=== PATIENT | female | born 1945 | race Caucasian/White ===

== ENCOUNTER 2020-05-31 13:44 | Emergency (ER) | payer MEDICARE, OTHER, SELFPAY ==
[2020-05-31] VITALS (10 sets, daily range): BP systolic 145–167; BP diastolic 76–88; PULSE 65–103; RESP 14–21; TEMP 36.8; O2SAT 96–98; BMI 22.4
--- NOTE | 2020-05-31 14:04 | ED_ITS ---
HPI - Female Genitourinary General Chief complaint: Urogenital-Female Stated complaint: abd/fatigue/uti pain x 4days Time Seen by Provider: 05/31/20 13:48 Source: patient and family Mode of arrival: Ambulatory Limitations: no limitations History of Present Illness HPI Narrative: Patient is a 74-year-old female with history of dementia presenting with her son with variety of complaints. She has a history of UTIs s he was recently treated for about 3-5 days for UTI, son is not entirely sure what she was on or when she stops it feels like it was a couple of weeks ago. He said the last day or so she has been complaining of some pain in her rectum. He has not noted significant decrease in her mental status. No fever nausea or vomiting. Patient currently complaining of being uncomfortable in the gurney and needing a pillow adjustment. She has no complaints of pain. Son states that she typically does not complain much of pain. Related Data Previous Rx's Medication Instructions Recorded cephalexin [Keflex] 500 mg PO TID #21 cap 05/31/20 hydrocortisone acetate [Anusol-HC] 25 mg ME BID PRN #12 ea 05/31/20 Allergies Allergy/AdvReac Type Severity Reaction Status Date / Time No Known Drug Allergies Allergy Verified 05/31/20 13:53 Review of Systems Review of Systems Narrative: Dementia ROS Unobtainable: Unobtainable due to mental condition Patient History marital status: Exam Initial Vital Signs Initial Vital Signs: Vital Signs Pulse Rate 103 H 05/31/20 13:51 Pulse Oximetry 96 05/31/20 13:51 GENERAL: Pleasant alert 74-year-old and in no acute distress. HEENT: Head atraumatic,EOMI, pupils reactive, face symmetric, moist mucous membranes CARDIOVASCULAR: Regular rate and rhythm without murmurs, rubs or gallops. RESPIRATORY: Breath sounds equal bilaterally, no wheezes rales or rhonchi. ABDOMEN: Soft, nontender. Normoactive bowel sounds all 4 quadrants. No guarding or rebound. RECTAL: External hemorrhoids noted, soft stool nonbloody EXTREMITIES: Normal range of motion, no clubbing or edema. Neurovascularly intact NEUROLOGICAL: Alert and oriented SKIN: Warm, dry, no laceration, no petechiae, no rashes or lesions. Procedures Rectal Disimpaction Time out performed rectal disimpaction: Yes Indication: fecal impaction Procedural Sedation: No Sedation/Analgesia: none Technique: manual disimpaction with gloved finger Result: significant stool output (some) Patient Tolerated Procedure: Well and No complications Complications: none Course Orders Ordered: ED Orders 05/31/20 14:05 Complete Blood Count AUTO DIFF Stat Comprehensive Metabolic Panel Stat Lactate (Lactic Acid) Stat Procalcitonin Stat 05/31/20 14:14 XR acute abdomen series Stat 05/31/20 14:43 Blood Culture Stat 05/31/20 14:55 Urinalysis and Microscopic Stat Urine Culture Stat Sodium Chloride (Normal Saline 0.9%) 1,000 mls @ 200 mls/hr IV CONT SOURAV Last Admin: 05/31/20 14:18 Dose: 200 mls/hr Documented by: APPLE Discontinued Medications Lidocaine HCl (Lidocaine 2% (Urojet) 5 Ml Gel) 5 ml TOP NOW ONE Stop: 05/31/20 18:11 Last Admin: 05/31/20 18:15 Dose: 5 ml Documented by: Mineral Oil (Mineral Oil 1 Each Enema) 1 each ME NOW ONE Stop: 05/31/20 16:05 Last Admin: 05/31/20 16:09 Dose: 1 each Documented by: APPLE Vital Signs Vital signs: Vital Signs - 8 hr 05/31/20 13:51 05/31/20 13:52 05/31/20 13:53 Temperature 98.2 F Pulse Rate 103 H 89 82 Respiratory Rate 14 Blood Pressure 145/78 H 145/78 H Pulse Oximetry 96 98 98 05/31/20 14:00 05/31/20 14:52 05/31/20 15:00 Temperature Pulse Rate 79 69 67 Respiratory Rate 21 Blood Pressure 154/77 H Pulse Oximetry 98 97 97 05/31/20 15:01 05/31/20 15:30 05/31/20 16:00 Temperature Pulse Rate 65 65 70 Respiratory Rate Blood Pressure 154/77 H 145/77 H 159/76 H Pulse Oximetry 97 98 MDM - Female Genitourinary Lab Data Attestation: I reviewed the patient's lab results. Result diagrams: 05/31/20 14:05 05/31/20 14:05 Labs: Lab Results 05/31/20 05/31/20 05/31/20 Range/Units 14:05 14:05 14:05 WBC 8.9 (4.5-11.0) X10^3/uL RBC 4.76 (4.0-5.2) X10^6/uL Hgb 14.3 (12.0-16.0) g/dL Hct 42.6 (36-46) % MCV 89.5 (80-100) fL MCH 30.0 (26-34) PG MCHC 33.5 (30-36) % RDW 14.1 (11.6-14.8) % Plt Count 245 (150-400) X10^3/uL Neut % (Auto) 65.2 (50-75) % Lymph % (Auto) 20.6 L (25-40) % [place] % (Auto) 8.8 (3-14) % Eos % (Auto) 4.6 H (2-4) % Baso % (Auto) 0.8 (0-2) % Neut # (Auto) 5800 (0987-3267) /uL Lymph # (Auto) 1800 (6989-0475) /uL [place] # (Auto) 800 (0-900) /uL Eos # (Auto) 400 (0-450) /uL Baso # (Auto) 100 (0-100) /uL Sodium 141 (137-145) mmol/L Potassium 3.6 (3.4-5.1) mmol/L Chloride 105 (98-107) mmol/L Carbon Dioxide 30 (22-32) mmol/L BUN 17 (7-17) mg/dL Creatinine 0.66 (0.52-1.04) mg/dL Estimated GFR > 60.0 (>60) mL/min BUN/Creatinine Ratio 25.8 H (6-22) Glucose 96 (80-110) mg/dL Lactate (0.7-2.1) mmol/L Calcium 9.5 (8.4-10.2) mg/dL Total Bilirubin 2.2 H (0.2-1.3) mg/dL AST 28 (14-36) IU/L ALT 14 (<35) IU/L Alkaline Phosphatase 96 (38-126) U/L Total Protein 7.5 (6.3-8.2) g/dL Albumin 4.3 (3.5-5.0) g/dL Globulin 3.2 (1.7-4.1) g/dL Albumin/Globulin Ratio 1.3 (1.0-2.8) Procalcitonin < 0.05 (<0.5) ng/mL Urine Color Urine Appearance Urine pH (4.5-8.0) Ur Specific [place] (1.000-1.035) Urine Protein (Negative) Urine Glucose (UA) (Negative) g/dL Urine Ketones (NEGATIVE) Urine Occult Blood (Negative) Urine Nitrate (Negative) Urine Bilirubin (NEGATIVE) Urine Urobilinogen (0.2) E.U./dL Ur Leukocyte Esterase (NEGATIVE) Urine RBC (0-5/HPF) Urine WBC (0-5/HPF) Ur Squamous Epith Cells (0-5/HPF) Calcium Oxalate Crystal Amorphous Sediment Urine Bacteria (None) Urine Mucus (Negative) Ur Culture Indicated? 05/31/20 05/31/20 Range/Units 14:05 14:55 WBC (4.5-11.0) X10^3/uL RBC (4.0-5.2) X10^6/uL Hgb (12.0-16.0) g/dL Hct (36-46) % MCV (80-100) fL MCH (26-34) PG MCHC (30-36) % RDW (11.6-14.8) % Plt Count (150-400) X10^3/uL Neut % (Auto) (50-75) % Lymph % (Auto) (25-40) % [place] % (Auto) (3-14) % Eos % (Auto) (2-4) % Baso % (Auto) (0-2) % Neut # (Auto) (8311-2960) /uL Lymph # (Auto) (2856-4948) /uL [place] # (Auto) (0-900) /uL Eos # (Auto) (0-450) /uL Baso # (Auto) (0-100) /uL Sodium (137-145) mmol/L Potassium (3.4-5.1) mmol/L Chloride (98-107) mmol/L Carbon Dioxide (22-32) mmol/L BUN (7-17) mg/dL Creatinine (0.52-1.04) mg/dL Estimated GFR (>60) mL/min BUN/Creatinine Ratio (6-22) Glucose (80-110) mg/dL Lactate 1.4 (0.7-2.1) mmol/L Calcium (8.4-10.2) mg/dL Total Bilirubin (0.2-1.3) mg/dL AST (14-36) IU/L ALT (<35) IU/L Alkaline Phosphatase (38-126) U/L Total Protein (6.3-8.2) g/dL Albumin (3.5-5.0) g/dL Globulin (1.7-4.1) g/dL Albumin/Globulin Ratio (1.0-2.8) Procalcitonin (<0.5) ng/mL Urine Color Yellow Urine Appearance Clear Urine pH 6.0 (4.5-8.0) Ur Specific [place] 1.020 (1.000-1.035) Urine Protein Trace H (Negative) Urine Glucose (UA) Negative (Negative) g/dL Urine Ketones Negative (NEGATIVE) Urine Occult Blood 1+ H (Negative) Urine Nitrate Negative (Negative) Urine Bilirubin Negative (NEGATIVE) Urine Urobilinogen 0.2 (0.2) E.U./dL Ur Leukocyte Esterase Trace H (NEGATIVE) Urine RBC 1-5/hpf (0-5/HPF) Urine WBC 5-10/hpf H (0-5/HPF) Ur Squamous Epith Cells 1-5 /hpf (0-5/HPF) Calcium Oxalate Crystal Few H Amorphous Sediment 1+ Urine Bacteria Few (2-10) H (None) Urine Mucus 1+ H (Negative) Ur Culture Indicated? Specimen cultured Imaging Data Abdominal x-ray: Radiologist's Impression: PROCEDURE: XR ACUTE ABDOMEN SERIES INDICATIONS: rectal pain TECHNIQUE: One view chest and two views of the abdomen were acquired. COMPARISON: None. FINDINGS: Surgical changes and devices: None. Chest: Lungs are clear. Heart size is enlarged. No pleural effusions. No pneumoperitoneum. Abdomen: Air distended colon loops are noted in abdomen with suggestion of fecal impaction in the region of distal sigmoid colon and rectum. No significant small bowel wall distention is seen. No gross peritoneal free air. No suspicious calcifications. Visualized solid organ contours appear normal. Bones: No suspicious bony lesions. IMPRESSION: Finding is suggestive of fecal impaction in the lower sigmoid colon and rectum. Distal colonic obstruction at the level of rectum cannot be excluded, suggest clinical correlation. No gross free air. Dictated by: Alexei Gunter M.D. on 05/31/2020 at 14:54 MDM Narrative Medical decision making narrative: Patient has obvious stool impaction along with hemorrhoid. There was not any large or hard stool it was all relatively soft. However disimpaction was quite painful due to hemorrhoids. Not much was removed. She has a history of frequent UTI she does have some blood bacteria in her urine. Will treat her for UTI with Keflex. She does not appear septic. She is obviously suffering from dementia. Frequently gets up to the commode and forgets why she is there. Discharge Plan Departure Patient Disposition: Home Clinical Impression: External hemorrhoids Urinary tract infection Qualifiers: Urinary tract infection type: acute cystitis Hematuria presence: with hematuria Qualified Code(s): N30.01 - Acute cystitis with hematuria Constipation Qualifiers: Constipation type: unspecified constipation type Qualified Code(s): K59.00 - Constipation, unspecified Instructions: DI for Hemorrhoids, DI for Urinary Tract Infection (UTI), DI for Constipation Activity Restrictions/Additional Instructions: *You have been diagnosed with constipation, hemorrhoids, UTI *What to do: Bowel movements are painful because of hemorrhoids. Recommend increasing water intake and using hemorrhoid suppositories to help make bowel movements last painful. *Continue to take medications as directed Anusol suppository as needed Keflex 500 mg 3 times a day for 5 days *Follow up with your primary care provider in 2-3 days *Return to ER if you should have increasing rectal pain, fever, worsening confusion or any new, worsening or concerning symptoms Prescriptions: New hydrocortisone acetate [Anusol-HC] 25 mg suppository 25 mg ME BID PRN (Reason: hemorrhoids) Qty: 12 RF: 0 cephalexin [Keflex] 500 mg capsule 500 mg PO TID Qty: 21 RF: 0 Referrals: Junie Graff MD [Primary Care Provider] -
--- NOTE | 2020-05-31 14:14 | DI.RAD.S_ITS ---
PROCEDURE: XR ACUTE ABDOMEN SERIES INDICATIONS: rectal pain TECHNIQUE: One view chest and two views of the abdomen were acquired. COMPARISON: None. FINDINGS: Surgical changes and devices: None. Chest: Lungs are clear. Heart size is enlarged. No pleural effusions. No pneumoperitoneum. Abdomen: Air distended colon loops are noted in abdomen with suggestion of fecal impaction in the region of distal sigmoid colon and rectum. No significant small bowel wall distention is seen. No gross peritoneal free air. No suspicious calcifications. Visualized solid organ contours appear normal. Bones: No suspicious bony lesions. IMPRESSION: Finding is suggestive of fecal impaction in the lower sigmoid colon and rectum. Distal colonic obstruction at the level of rectum cannot be excluded, suggest clinical correlation. No gross free air. Dictated by: Alexei Gunter M.D. on 05/31/2020 at 14:54 Approved by: Alexei Gunter M.D. on 05/31/2020 at 15:07
[2020-05-31] MEDS: SODIUM CHLORIDE 0.9% 1,000 ML 200 ML IV (14:18)
[2020-05-31 14:21] LABS: Add Manual Diff / Slide Review NO; Basophils Absolute Auto 100 /uL (0-100); Basophils Percent Auto 0.8 % (0-2); Eosinophils Absolute Auto 400 /uL (0-450); Eosinophils Percent Auto 4.6 % (2-4); Hematocrit 42.6 % (36-46); Hemoglobin 14.3 g/dL (12.0-16.0); Lymphocytes Absolute Auto 1800 /uL (1100-4500); Lymphocytes Percent Auto 20.6 % (25-40); Mean Corpuscular HGB Conc 33.5 % (30-36); Mean Corpuscular Volume 89.5 fL (80-100); Monocytes Absolute Auto 800 /uL (0-900); Monocytes Percent Auto 8.8 % (3-14); Neutrophils Absolute Auto 5800 /uL (1500-7000); Neutrophils Percent Auto 65.2 % (50-75); Platelet Count 245 X10^3/uL (150-400); Red Blood Cell Count 4.76 X10^6/uL (4.0-5.2); Red Cell Distribution Width 14.1 % (11.6-14.8); White Blood Cell Count 8.9 X10^3/uL (4.5-11.0)
[2020-05-31 14:33] LABS: Alanine Aminotransferase 14 IU/L (<35); Albumin 4.3 g/dL (3.5-5.0); Albumin Globulin Ratio 1.3 (1.0-2.8); Alkaline Phosphatase 96 U/L (38-126); Aspartate Aminotransferase 28 IU/L (14-36); BUN Creatinine Ratio 25.8 (6-22); Bilirubin Total 2.2 mg/dL (0.2-1.3); Blood Urea Nitrogen 17 mg/dL (7-17); Calcium 9.5 mg/dL (8.4-10.2); Carbon Dioxide 30 mmol/L (22-32); Chloride 105 mmol/L (98-107); Estimated Glomerular Filt Rate > 60.0 mL/min (>60); Globulin 3.2 g/dL (1.7-4.1); Glucose 96 mg/dL (80-110); HEMOLYSIS < 15 (0-50); Lactate (Lactic Acid) 1.4 mmol/L (0.7-2.1); Potassium 3.6 mmol/L (3.4-5.1); Sodium 141 mmol/L (137-145); Total Protein 7.5 g/dL (6.3-8.2)
[2020-05-31 15:04] LABS: Appearance Urine UA CLEAR; Bilirubin Urine UA NEGATIVE (NEGATIVE); Color Urine UA YELLOW; Glucose Urine UA NEGATIVE (Negative); Ketones Urine UA NEGATIVE (NEGATIVE); Leukocyte Esterase Urine UA TRACE (NEGATIVE); Nitrite Urine UA NEGATIVE (Negative); Occult Blood Urine UA 1+ (Negative); Protein Urine UA TRACE (Negative); Urobilinogen Urine UA 0.2 E.U./dL (0.2)
[2020-05-31 15:04] LABS: Procalcitonin < 0.05 ng/mL (<0.5)
[2020-05-31 15:12] LABS: Amorphous Sediment Urine 1+; Bacteria Urine Few (2-10); Calcium Oxalate Crystals Urine Few; Culture Indicated Urine Specimen Cultured; Mucus Urine 1+ (Negative); RBC Urine 1-5/HPF (0-5/HPF); Squamous Epithelial Cell Urine 1-5 /HPF (0-5/HPF); WBC Urine 5-10/HPF (0-5/HPF)
[2020-05-31] MEDS: MINERAL OIL 1 EACH ENEMA PR (16:09)
[2020-05-31] MEDS: LIDOCAINE 2% (UROJET) 5 ML GEL TOP (18:15)
== END 2020-05-31 19:03 | disposition home or self-care (01) ==
PROVIDERS: Emergency Provider Emergency Medicine; PCP Family Medicine
DX: K64.9 Unspecified hemorrhoids (principal); N30.01 Acute cystitis with hematuria; K59.00 Constipation, unspecified
CPT/HCPCS: 36415; 74022; 80053; 81001; 83605; 84145; 85025; 87040; 87086; 96360; 96361; 99283; 99284

== ENCOUNTER 2020-06-07 18:58 | Emergency (ER) | payer MEDICARE, OTHER, SELFPAY ==
[2020-06-07 18:59] VITALS: PULSE 76; RESP 15; TEMP 36.7; O2SAT 97
[2020-06-07 19:05] VITALS: BP 161/76
[2020-06-07 19:58] VITALS: BMI 22.8
--- NOTE | 2020-06-07 20:39 | ED_ITS ---
HPI - Back Pain/Injury General Chief Complaint: Back Pain/Injury Stated Complaint: back pain/ kidney area Time Seen by Provider: 06/07/20 19:15 Source: patient and family Limitations: other History of Present Illness HPI Narrative: Patient here for bilateral flank pain. Seen here 7 days ago for abdominal pain/CTA/constipation. Did have bowel movement since then. Worsened pain in last 3 days. No fever. No nausea or vomiting. No fall or injury. No prior history of back problems. Family states has not been able to stand and walk. That is unusual for her. She is usually ambulatory. No fever. Related Data Previous Rx's Medication Instructions Recorded cephalexin [Keflex] 500 mg PO TID #21 cap 05/31/20 hydrocortisone acetate [Anusol-HC] 25 mg MA BID PRN #12 ea 05/31/20 Allergies Allergy/AdvReac Type Severity Reaction Status Date / Time No Known Drug Allergies Allergy Verified 05/31/20 13:53 Review of Systems Review of Systems Narrative: GENERAL: Denies chills, fatigue, malaise, fever, sweats. HEENT: Denies sinus pain, ear pain, sore throat, difficulty swallowing RESPIRATORY: Denies dyspnea, cough CARDIOVASCULAR: Denies chest pain, palpitations, edema, GASTROINTESTINAL: Denies nausea, vomiting, abdominal pain, diarrhea, constipation, melena. : Denies dysuria, frequency, hematuria MUSCULOSKELETAL: denies muscle or bony pain SKIN: Denies rash, skin lesions NEUROLOGIC: Denies weakness, headache, numbness, change in speech, confusion PSYCHIATRIC: No SI or HI or hallucinations ROS Unobtainable: All systems reviewed & are unremarkable except as noted in HPI and below Patient History Social History marital status: Smoking Status: Never smoker Smoking Status: Never smoker alcohol intake frequency: 0-2 drinks per day Substance Use Type: does not use Exam Narrative Exam Narrative: GENERAL: patient appears stated age. Well-nourished, well- developed patient, in no distress, not toxic not dyspneic HEAD: Normocephalic. EYES: Pupils equal round and reactive. No scleral icterus. No injection no discharge ENT: Mucous membranes moist. No drooling no tongue elevation no trismus no malocclusion NECK: Trachea midline. Non tender CARDIOVASCULAR: Regular rate and rhythm without murmurs, gallops, or rubs. RESPIRATORY: Clear to auscultation. Breath sounds equal bilaterally. No wheezes, rales, or rhonchi. GASTROINTESTINAL: Abdomen soft, non-tender, nondistended. No peritoneal signs EXTREMITIES: No gross deformities. BACK: Nontender without deformity or crepitance. No flank tenderness. No rash. NEURO: Patient awake alert oriented to self and place. Patient at baseline according to [id number]. Clear speech. SKIN: Warm and dry PSYCH: Not anxious, is cooperative Initial Vital Signs Initial Vital Signs: Vital Signs Temperature 98.1 F 06/07/20 18:59 Pulse Rate 76 06/07/20 18:59 Respiratory Rate 15 06/07/20 18:59 Pulse Oximetry 97 06/07/20 18:59 Course Course Course Narrative: No new complaints while here. Orders Ordered: ED Orders 06/07/20 20:38 CT abdomen pelvis w con Stat 06/07/20 20:50 Complete Blood Count AUTO DIFF Stat Comprehensive Metabolic Panel Stat Lipase Stat 06/07/20 21:24 Urinalysis and Microscopic Stat Discontinued Medications Sodium Chloride (Normal Saline 0.9%) 500 mls @ 1,000 mls/hr IV BOLUS ONE Stop: 06/07/20 21:07 Last Infusion: 06/07/20 22:05 Dose: 0 mls/hr Documented by: Admin: 06/07/20 21:09 Dose: 1,000 mls/hr Documented by: EDER Reevaluation(s) Reevaluation #1: Reviewed results with patient and family. [id number] at bedside. At this time back pain not likely due to GI. Not related to constipation. Could be degenerative disc disease. There is no fracture seen on CT scan. Time: 22:49 Reevaluation #2: Patient up and walking bearing weight. Slightly shuffled gait. spd tech and daughter off at patient's side, not requiring assist Vital Signs Vital signs: Vital Signs - 8 hr 06/07/20 18:59 06/07/20 19:05 06/07/20 23:12 Temperature 98.1 F Pulse Rate 76 78 Respiratory Rate 15 22 Blood Pressure 162/89 H Blood Pressure [Left Arm] 161/76 H Pulse Oximetry 97 94 MDM - Back Pain/Injury Differential Diagnosis Differential diagnosis: Likely lumbar radiculopathy, strain of lumbar region, pyelonephritis, AAA, discitis and other (Degenerative disc disease) Medical Records Attestation: I reviewed the patient's medical records. Lab Data Attestation: I reviewed the patient's lab results. Result diagrams: 06/07/20 20:50 06/07/20 20:50 Labs: Lab Results 06/07/20 06/07/20 06/07/20 Range/Units 20:50 20:50 21:24 WBC 7.2 (4.5-11.0) X10^3/uL RBC 4.28 (4.0-5.2) X10^6/uL Hgb 12.5 (12.0-16.0) g/dL Hct 38.0 (36-46) % MCV 88.9 (80-100) fL MCH 29.3 (26-34) PG MCHC 33.0 (30-36) % RDW 13.7 (11.6-14.8) % Plt Count 219 (150-400) X10^3/uL Neut % (Auto) 66.0 (50-75) % Lymph % (Auto) 20.7 L (25-40) % [place] % (Auto) 7.3 (3-14) % Eos % (Auto) 4.9 H (2-4) % Baso % (Auto) 1.1 (0-2) % Neut # (Auto) 4800 (2696-8890) /uL Lymph # (Auto) 1500 (1020-4552) /uL [place] # (Auto) 500 (0-900) /uL Eos # (Auto) 400 (0-450) /uL Baso # (Auto) 100 (0-100) /uL Sodium 136 L (137-145) mmol/L Potassium 3.9 (3.4-5.1) mmol/L Chloride 104 (98-107) mmol/L Carbon Dioxide 30 (22-32) mmol/L BUN 13 (7-17) mg/dL Creatinine 0.51 L (0.52-1.04) mg/dL Estimated GFR > 60.0 (>60) mL/min BUN/Creatinine Ratio 25.5 H (6-22) Glucose 104 (80-110) mg/dL Calcium 8.8 (8.4-10.2) mg/dL Total Bilirubin 0.7 (0.2-1.3) mg/dL AST 21 (14-36) IU/L ALT 12 (<35) IU/L Alkaline Phosphatase 80 (38-126) U/L Total Protein 5.9 L (6.3-8.2) g/dL Albumin 3.4 L (3.5-5.0) g/dL Globulin 2.5 (1.7-4.1) g/dL Albumin/Globulin Ratio 1.4 (1.0-2.8) Lipase 58 (23-300) U/L Urine Color Yellow Urine Appearance Clear Urine pH 7.5 (4.5-8.0) Ur Specific [place] 1.010 (1.000-1.035) Urine Protein Negative (Negative) Urine Glucose (UA) Negative (Negative) g/dL Urine Ketones Negative (NEGATIVE) Urine Occult Blood Negative (Negative) Urine Nitrate Negative (Negative) Urine Bilirubin Negative (NEGATIVE) Urine Urobilinogen 0.2 (0.2) E.U./dL Ur Leukocyte Esterase Negative (NEGATIVE) Urine RBC 0-1/hpf (0-5/HPF) Urine WBC 0-1/hpf (0-5/HPF) Ur Squamous Epith Cells 1-5 /hpf (0-5/HPF) Ur Transition Epith Cell 0-1/hpf (0-5/HPF) Ur Renal Epithelial Cell 0-1/hpf (0-1/HPF) Urine Bacteria Few (2-10) H (None) Ur Culture Indicated? Cult not indicated Urine Dip Bedside Urine Glucose Negative Bedside Urine Bilirubin - Negative Bedside Urine Ketone +/- 5 Urine Specific [place] 1.10 Bedside Urine Occult Blood - Negative Bedside Urine pH 7.5 Bedside Urine Protein - Negative Bedside Urine Urobilinogen - Negative Bedside Urine Nitrite - Negative Bedside Urine Leukocytes - Negative Esterase Imaging Data CT scan - abdomen/pelvis: Radiologist's Impression: [address] [id number] Scan ReportSigned Patient: Mia Gonzalez JMR#: [id number]: 4Acct:[id number]/Sex: 74 / FDate of Service: 06/07/20Loc: EDAccession Number: [id number] Procedure: CT abdomen pelvis w con Ordering Provider: Florian Crane MD PROCEDURE: CT ABDOMEN PELVIS W CON INDICATIONS: IV contrast only/abdominal pain/flank pain TECHNIQUE: After the administration of intravenous contrast, 5 mm thick sections acquired from the diaphragm to the symphysis. 5 mm coronal and sagittal reformats were acquired. For radiation dose reduction, the following was used: automated exposure control, adjustment of mA and/or kV according to patient size. COMPARISON: [facility], CT, CT ABD PELVIS W CON, 10/29/2016, 12:37. FINDINGS: Image quality: Excellent. ABDOMEN: Lung bases: Lung bases are clear. Heart size is normal. Moderate-sized hiatal hernia. Solid organs: Liver is normal in size and enhancement. Multiple stable subcentimeter hepatic hypodensities. Gallbladder contains a tiny 6 mm density near the gallbladder neck. No gallbladder wall thickening or pericholecystic inflammatory changes.. Biliary system is non dilated. Pancreas enhances normally. Spleen is normal in size and enhancement. No adrenal nodules. Kidneys demonstrate normal size and enhancement, without hydronephrosis. Punctate bilateral nonobstructing renal stones measuring up to 2 mm on the right and 7 mm on the left. No ureteral stones visualized. Peritoneum and bowel: Bowel loops demonstrate normal wall thickness and caliber. No free fluid or air. Mild colonic diverticulosis without acute diverticulitis. Large amount of fecal material noted throughout the colon. Nodes and vessels: No retroperitoneal or mesenteric adenopathy by size criteria. Aorta and inferior vena cava are normal in size. Miscellaneous: No ventral hernias. PELVIS: Genitourinary: Bladder wall thickness is normal. No urinary bladder stones. Miscellaneous: No inguinal hernias. No pelvic adenopathy. Bones: No suspicious bony lesions. No acute vertebral body compression fractures. Dextroscoliosis of the lumbar spine. IMPRESSION: 1. CT abdomen and pelvis without acute abnormalities. 2. Bilateral nonobstructing nephroliths without evidence for obstructive uropathy. 3. Scattered colonic diverticulosis without acute diverticulitis. 4. Moderate amount of fecal material seen throughout the colon possibly related to constipation. No evidence for bowel obstruction. 5. Possible [address] evidence for acute cholecystitis. 6. Moderate-sized hiatal hernia. Other chronic findings as above. Dictated by: Armen Hernandez M.D. on 06/07/2020 at 21:38 Approved by: Armen Hernandez M.D. on 06/07/2020 at 21:47 MDM Narrative Medical decision making narrative: Appropriate for discharge home. Patient desires discharge home and family comfortable with plans for outpatient follow- up for MRI and physical therapy. Discharge Plan Departure Patient Disposition: Home Clinical Impression: Acute back pain Qualifiers: Back pain location: back pain in unspecified location Back pain laterality: uns pecified Qualified Code(s): M54.9 - Dorsalgia, unspecified Instructions: DI for Low Back Pain, DI for Thoracic Back Pain Activity Restrictions/Additional Instructions: Return if worse or if any questions or concerns. See family doctor this week for recheck as well as for scheduled for physical therapy and possible MRI of the spine. May use [id number] ibuprofen for pain. May take 400 mg every 4 to 6 hours as needed for pain. Continue MiraLax Prescriptions: No Action hydrocortisone acetate [Anusol-HC] 25 mg suppository 25 mg MA BID PRN (Reason: hemorrhoids) Qty: 12 RF: 0 cephalexin [Keflex] 500 mg capsule 500 mg PO TID Qty: 21 RF: 0 Referrals: Junie Graff MD [Primary Care Provider] -
[2020-06-07 20:58] LABS: Add Manual Diff / Slide Review NO; Basophils Absolute Auto 100 /uL (0-100); Basophils Percent Auto 1.1 % (0-2); Eosinophils Absolute Auto 400 /uL (0-450); Eosinophils Percent Auto 4.9 % (2-4); Hemoglobin 12.5 g/dL (12.0-16.0); Lymphocytes Absolute Auto 1500 /uL (1100-4500); Lymphocytes Percent Auto 20.7 % (25-40); Mean Corpuscular Hemoglobin 29.3 PG (26-34); Mean Corpuscular Volume 88.9 fL (80-100); Monocytes Absolute Auto 500 /uL (0-900); Monocytes Percent Auto 7.3 % (3-14); Neutrophils Absolute Auto 4800 /uL (1500-7000); Platelet Count 219 X10^3/uL (150-400); Red Blood Cell Count 4.28 X10^6/uL (4.0-5.2); Red Cell Distribution Width 13.7 % (11.6-14.8); White Blood Cell Count 7.2 X10^3/uL (4.5-11.0)
[2020-06-07 21:08] LABS: Alanine Aminotransferase 12 IU/L (<35); Albumin 3.4 g/dL (3.5-5.0); Albumin Globulin Ratio 1.4 (1.0-2.8); Alkaline Phosphatase 80 U/L (38-126); Aspartate Aminotransferase 21 IU/L (14-36); BUN Creatinine Ratio 25.5 (6-22); Bilirubin Total 0.7 mg/dL (0.2-1.3); Blood Urea Nitrogen 13 mg/dL (7-17); Calcium 8.8 mg/dL (8.4-10.2); Carbon Dioxide 30 mmol/L (22-32); Chloride 104 mmol/L (98-107); Estimated Glomerular Filt Rate > 60.0 mL/min (>60); Globulin 2.5 g/dL (1.7-4.1); Glucose 104 mg/dL (80-110); HEMOLYSIS < 15 (0-50); Lipase 58 U/L (23-300); Potassium 3.9 mmol/L (3.4-5.1); Sodium 136 mmol/L (137-145); Total Protein 5.9 g/dL (6.3-8.2)
[2020-06-07] MEDS: SODIUM CHLORIDE 0.9% 500 ML 1000 ML IV (21:09)
[2020-06-07 21:32] LABS: Appearance Urine UA CLEAR; Bilirubin Urine UA NEGATIVE (NEGATIVE); Color Urine UA YELLOW; Glucose Urine UA NEGATIVE (Negative); Ketones Urine UA NEGATIVE (NEGATIVE); Leukocyte Esterase Urine UA NEGATIVE (NEGATIVE); Nitrite Urine UA NEGATIVE (Negative); Occult Blood Urine UA NEGATIVE (Negative); Protein Urine UA NEGATIVE (Negative); Urobilinogen Urine UA 0.2 E.U./dL (0.2)
[2020-06-07 21:37] LABS: pH Urine UA 7.5 (4.5-8.0)
[2020-06-07 21:47] LABS: Bacteria Urine Few (2-10); Culture Indicated Urine Cult Not Indicated; RBC Urine 0-1/HPF (0-5/HPF); Renal Epithelial Cells Urine 0-1/HPF (0-1/HPF); Squamous Epithelial Cell Urine 1-5 /HPF (0-5/HPF); Transitional Epi Cells Urine 0-1/HPF (0-5/HPF); WBC Urine 0-1/HPF (0-5/HPF)
[2020-06-07 23:12] VITALS: BP 162/89; PULSE 78; RESP 22; O2SAT 94
== END 2020-06-07 23:10 | disposition home or self-care (01) ==
PROVIDERS: Emergency Provider Emergency Medicine; PCP Family Medicine
DX: M54.9 Dorsalgia, unspecified (principal); R10.9 Unspecified abdominal pain
CPT/HCPCS: 36415; 74177; 80053; 81001; 81003; 83690; 85025; 96360; 99284; Q9967

== ENCOUNTER 2020-06-08 09:37 | Emergency (ER) | payer MEDICARE, OTHER, SELFPAY ==
[2020-06-08] VITALS (7 sets, daily range): BP systolic 116–151; BP diastolic 56–93; PULSE 75–89; RESP 15–18; TEMP 36.6; O2SAT 94–98
--- NOTE | 2020-06-08 09:37 | ED.FALL ---
HPI - Fall General Chief Complaint: Fall Stated Complaint: Unwitnessed fall Time Seen by Provider: 06/08/20 09:37 Source: EMS Mode of arrival: EMS Limitations: altered mental status History of Present Illness HPI Narrative: Patient is a 74-year-old female. Has a history of dementia as reported by EMS. Was seen here in the emergency department yesterday and eventually discharged home. The report from EMS and nursing and review of the note shows that there was some talk about a social work evaluation for potential other living situations however it was felt that the patient could follow-up with her primary doctor regarding this. EMS reports they were called this morning by the family because the patient was found down on hardwood floor. Is unsure as to how she fell. Patient unable to provide any HPI. Related Data Previous Rx's Medication Instructions Recorded cephalexin [Keflex] 500 mg PO TID #21 cap 05/31/20 hydrocortisone acetate [Anusol-HC] 25 mg VT BID PRN #12 ea 05/31/20 Allergies Allergy/AdvReac Type Severity Reaction Status Date / Time No Known Drug Allergies Allergy Verified 06/08/20 09:45 Review of Systems Review of Systems Narrative: Unable to provide secondary to history of reported dementia Patient History Medical History Dementia Social History marital status: Smoking Status: Never smoker Smoking Status: Never smoker alcohol intake frequency: 0-2 drinks per day Substance Use Type: does not use Exam Initial Vital Signs Initial Vital Signs: Vital Signs Temperature 97.8 F 06/08/20 09:45 Pulse Rate 89 06/08/20 09:45 Respiratory Rate 15 06/08/20 09:45 Blood Pressure 151/93 H 06/08/20 09:45 Pulse Oximetry 98 06/08/20 09:45 Const Limitations: other limitations (Dementia) HENMT Head: normal to inspection and normocephalic Eyes General: appearance normal, both eyes and all related structures Resp Effort & Inspection: normal respiratory effort Auscultation: clear to auscultation bilaterally Cardio Rate: regular rate Rhythm: regular rhythm GI Inspection: non-distended Palpation: soft Skin Lesions: no lesions Rashes: no rashes Neuro General: patient awake Other: Patient knows her name however will not answer what her date is. Does not know the year. Does not know where she is. Extrem Other: Moves bilateral upper extremities without apparent discomfort. Patient does report some discomfort with palpation of the right hip although she can flex and extend without apparent discomfort. She does report some discomfort around the right knee but can flex and extend peer Scores GCS Scottie coma scale eye opening: Spontaneous [place] coma scale verbal response: Confused [place] coma scale motor response: Obey commands [place] coma scale total score: 14 Course Orders Ordered: ED Orders 06/08/20 15:44 COVID19 Stat Vital Signs Vital signs: Vital Signs - 8 hr 06/08/20 17:31 06/08/20 17:54 Pulse Rate 87 85 Respiratory Rate 18 Blood Pressure 119/63 116/56 L Pulse Oximetry 96 94 MDM - Fall Medical Records Attestation: I reviewed the patient's medical records. Lab Data Attestation: I reviewed the patient's lab results. Result diagrams: 06/08/20 10:12 06/08/20 10:12 Labs: Lab Results 06/08/20 06/08/20 06/08/20 Range/Units 10:12 10:12 15:44 WBC 10.6 (4.5-11.0) X10^3/uL RBC 4.68 (4.0-5.2) X10^6/uL Hgb 13.8 (12.0-16.0) g/dL Hct 41.9 (36-46) % MCV 89.5 (80-100) fL MCH 29.5 (26-34) PG MCHC 33.0 (30-36) % RDW 13.7 (11.6-14.8) % Plt Count 209 (150-400) X10^3/uL Neut % (Auto) 86.0 H D (50-75) % Lymph % (Auto) 7.2 L (25-40) % [place] % (Auto) 5.0 (3-14) % Eos % (Auto) 1.5 L (2-4) % Baso % (Auto) 0.3 (0-2) % Neut # (Auto) 9100 H (6930-4019) /uL Lymph # (Auto) 800 L (6397-8105) /uL [place] # (Auto) 500 (0-900) /uL Eos # (Auto) 200 (0-450) /uL Baso # (Auto) 0 (0-100) /uL Sodium 138 (137-145) mmol/L Potassium 3.7 (3.4-5.1) mmol/L Chloride 106 (98-107) mmol/L Carbon Dioxide 28 (22-32) mmol/L BUN 9 (7-17) mg/dL Creatinine 0.41 L (0.52-1.04) mg/dL Estimated GFR > 60.0 (>60) mL/min BUN/Creatinine Ratio 22.0 (6-22) Glucose 102 (80-110) mg/dL Calcium 8.9 (8.4-10.2) mg/dL Total Creatine Kinase 109 (30-135) U/L SARS-CoV-2 (PCR) Negative (Negative) Imaging Data CT scan - head: Radiologist's Impression: [address] [id number] Scan ReportSigned Patient: Mia Gonzalez R#: [id number]: 4Acct:[id number]/Sex: 74 / FDate of Service: 06/08/20Loc: EDAccession Number: [id number] Procedure: CT head/brain wo con Ordering Provider: Antonino Mitchell D.O. PROCEDURE: CT HEAD/BRAIN WO CON INDICATIONS: unwitnessed fall TECHNIQUE: Noncontrast 4.5 mm thick angled axial sections acquired from the foramen magnum to the vertex, with coronal and sagittal reformats. For radiation dose reduction, the following was used: automated exposure control, adjustment of mA and/or kV according to patient size. COMPARISON: None. FINDINGS: Image quality: Excellent. CSF spaces: Basal cisterns are patent. No extra-axial fluid collections. The ventricles are symmetric in size and shape. Brain: No intracranial bleeds or masses. There is cerebral volume loss for age, with resultant ventricular and sulcal prominence. There are periventricular and deep white matter chronic small vessel ischemic changes. There is intracranial internal carotid artery atherosclerosis. Skull and face: Calvarium and visualized facial bones appear intact, without suspicious lesions. Sinuses: Visualized sinuses and mastoids are clear. IMPRESSION: No acute intracranial disease process. Dictated by: Breanna Levy MD, PhD on 06/08/2020 at 9:03 Approved by: Breanna Levy MD, PhD on 06/08/2020 at 9:05 Extremity x-ray #1: Radiologist's Impression: [address] [id number] ReportSigned Patient: Mia Gonzalez R#: [id number]: 4Acct:[id number]/Sex: 74 / FDate of Service: 06/08/20Loc: EDAccession Number: [id number] Procedure: XR femur RT min 2V Ordering Provider: Antonino Mitchell D.O. PROCEDURE: XR FEMUR RT MIN 2V INDICATIONS: fall with pain TECHNIQUE: 2 views of the femur were acquired. COMPARISON: [facility], CT, CT ABDOMEN PELVIS W CON, 06/07/2020, 20:55. [facility], CR, XR PELVIS 1-2V, 06/08/2020, 9:47. FINDINGS: Bones: No fractures or dislocations. No suspicious bony lesions. 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 Soft tissues: No suspicious soft tissue calcifications or masses. IMPRESSION: No acute osseous abnormalities. Dictated by: Jenaro Mccauley M.D. on 06/08/2020 at 10:14 Approved by: Jenaro Mccauley M.D. on 06/08/2020 at 10:18 pelvis: Radiologist's Impression: [address] [id number] ReportSigned Patient: Mia Gonzalez R#: [id number]: 4Acct:[id number]/Sex: 74 / FDate of Service: 06/08/20Loc: EDAccession Number: [id number] Procedure: XR pelvis 1-2V Ordering Provider: Antonino Mitchell D.O. PROCEDURE: XR PELVIS 1-2V INDICATIONS: unwitnessed fall with right hip pain TECHNIQUE: 1 view(s) of the pelvis acquired. COMPARISON: [facility], CR, XR FEMUR RT MIN 2V, 06/08/2020, 9:47. [facility], CT, CT ABDOMEN PELVIS W CON, 06/07/2020, 20:55. FINDINGS: Bones: No fractures or dislocations. No suspicious bony lesions. Mild symmetric hip joint degeneration. Soft tissues: Visualized bowel gas pattern is normal. No suspicious soft tissue calcifications. IMPRESSION: Mild symmetric hip joint degeneration. Dictated by: Jenaro Mccauley M.D. on 06/08/2020 at 10:18 Approved by: Jenaro Mccauley M.D. on 06/08/2020 at 10:21 [facility] Narrative Medical decision making narrative: Patient unable to provide any HPI. Her head CT and pelvis and right femur x-rays were unremarkable. No other injuries were found on the exam. Patient was seen by social work here in the emergency department and they were able to set up living facility here locally. Social work had multiple discussions with patient's family. She will be discharged to living facility. Discharge Plan Departure Patient Disposition: Home Clinical Impression: Fall, Dementia Instructions: How to Prevent Falls Activity Restrictions/Additional Instructions: Mia's COVID test was negative. I do recommend that she be evaluated by occupational/physical/speech therapy at the nursing facility. She can return to the emergency department at any point for new or worsening symptoms. She can continue to take her Keflex 500 mg 1 capsule by mouth 3 times a day until gone as directed on the bottle. She can also take MiraLax at 17 g by mouth once daily as needed for constipation. Prescriptions: No Action hydrocortisone acetate [Anusol-HC] 25 mg suppository 25 mg VT BID PRN (Reason: hemorrhoids) Qty: 12 RF: 0 cephalexin [Keflex] 500 mg capsule 500 mg PO TID Qty: 21 RF: 0 Referrals: Juine Graff MD [Primary Care Provider] -
--- NOTE | 2020-06-08 09:42 | DI.CT.S_ITS ---
PROCEDURE: CT HEAD/BRAIN WO CON INDICATIONS: unwitnessed fall TECHNIQUE: Noncontrast 4.5 mm thick angled axial sections acquired from the foramen magnum to the vertex, with coronal and sagittal reformats. For radiation dose reduction, the following was used: automated exposure control, adjustment of mA and/or kV according to patient size. COMPARISON: None. FINDINGS: Image quality: Excellent. CSF spaces: Basal cisterns are patent. No extra-axial fluid collections. The ventricles are symmetric in size and shape. Brain: No intracranial bleeds or masses. There is cerebral volume loss for age, with resultant ventricular and sulcal prominence. There are periventricular and deep white matter chronic small vessel ischemic changes. There is intracranial internal carotid artery atherosclerosis. Skull and face: Calvarium and visualized facial bones appear intact, without suspicious lesions. Sinuses: Visualized sinuses and mastoids are clear. IMPRESSION: No acute intracranial disease process. Dictated by: Breanna Levy MD, PhD on 06/08/2020 at 9:03 Approved by: Breanna Levy MD, PhD on 06/08/2020 at 9:05
--- NOTE | 2020-06-08 09:46 | DI.RAD.S_ITS ---
PROCEDURE: XR FEMUR RT MIN 2V INDICATIONS: fall with pain TECHNIQUE: 2 views of the femur were acquired. COMPARISON: [facility], CT, CT ABDOMEN PELVIS W CON, 06/07/2020, 20:55. [facility], CR, XR PELVIS 1-2V, 06/08/2020, 9:47. FINDINGS: Bones: No fractures or dislocations. No suspicious bony lesions. 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 Soft tissues: No suspicious soft tissue calcifications or masses. IMPRESSION: No acute osseous abnormalities. Dictated by: Jenaro Mccauley M.D. on 06/08/2020 at 10:14 Approved by: Jenaro Mccauley M.D. on 06/08/2020 at 10:18
[2020-06-08 10:24] LABS: Add Manual Diff / Slide Review NO; Basophils Absolute Auto 0 /uL (0-100); Basophils Percent Auto 0.3 % (0-2); Eosinophils Absolute Auto 200 /uL (0-450); Eosinophils Percent Auto 1.5 % (2-4); Hematocrit 41.9 % (36-46); Hemoglobin 13.8 g/dL (12.0-16.0); Lymphocytes Absolute Auto 800 /uL (1100-4500); Lymphocytes Percent Auto 7.2 % (25-40); Mean Corpuscular Hemoglobin 29.5 PG (26-34); Mean Corpuscular Volume 89.5 fL (80-100); Monocytes Absolute Auto 500 /uL (0-900); Neutrophils Absolute Auto 9100 /uL (1500-7000); Platelet Count 209 X10^3/uL (150-400); Red Blood Cell Count 4.68 X10^6/uL (4.0-5.2); Red Cell Distribution Width 13.7 % (11.6-14.8); White Blood Cell Count 10.6 X10^3/uL (4.5-11.0)
[2020-06-08 10:37] LABS: Blood Urea Nitrogen 9 mg/dL (7-17); Calcium 8.9 mg/dL (8.4-10.2); Carbon Dioxide 28 mmol/L (22-32); Chloride 106 mmol/L (98-107); Creatine Kinase 109 U/L (30-135); Estimated Glomerular Filt Rate > 60.0 mL/min (>60); Glucose 102 mg/dL (80-110); HEMOLYSIS < 15 (0-50); Potassium 3.7 mmol/L (3.4-5.1); Sodium 138 mmol/L (137-145)
--- NOTE | 2020-06-08 14:52 | PC.NURSE ---
[facility] at bedside doing a evaluation
--- NOTE | 2020-06-08 15:44 | CM.SWNOTE ---
HEALTHCARE ASSOCIATE Note This HEALTHCARE ASSOCIATE requested to consult for DC planning on behalf of this 74 yo female, presents for the third time in approx a week after unwitnessed fall at home.Dr Mitchell has completed his medical w/u and patient can medically DC from the ED, family requesting input re: options for additional care/facility placement for patient. Met w/patient and her dtr in law Brit, TERESA Urbina remains in car (one visitor allowed) and joins our conversation via speaker phone. Had lengthy conversation w/family re: current arrangement of care at home and options for increased care- suggested respite stay at a memory care unit for patient while family makes decisions re: fci care for mom and dad. reiterated multiple times the likelihood that placement efforts would begin here today, and would need to continue once patient had DC home w/increased family and/or private cg support. Patient and spouse live in the [facility], sons live w/in a 2 mi radius. Patient/spouse have daytime cgs and family assist on the weekends family aware increase in care is needed for 74 yo Mia, who has progressive dementia and is beginning to wander more in the evening. Attempted multiple memory care units and Mony Deras# [phone] at [facility] was able to help out today. Bedside assessment done in the ED and family agreeable to paying out of pocket for a month at [facility], evelia Urbina completing ppk. According to Mony/JANN, a rapid COVID is needed before admission this evening and request made for referral to outpatient therapy be included in DC ppk from the ED. gave this summary to Joyce ED RN who could relay to Dr Mitchell. Plan: DC from ED to [facility] (locked unit) this evening via family vs facility van, respite stay, private payment, need COVID updated and referral to outpatient PT/OT [facility]
[2020-06-08 16:08] LABS: COVID19 -Nasal RAPID Negative (Negative)
== END 2020-06-08 17:58 | disposition home or self-care (01) ==
PROVIDERS: Emergency Provider Emergency Medicine; PCP Family Medicine
DX: M79.604 Pain in right leg (principal); M25.551 Pain in right hip; F03.90 Unspecified dementia, unspecified severity, without behavioral disturbance, psychotic disturbance, mood disturbance, and anxiety; W19.XXXA Unspecified fall, initial encounter
CPT/HCPCS: 36415; 70450; 72170; 73552; 80048; 82550; 85025; 87635; 99284; C9803